=== PATIENT | male | born 1965 | race Caucasian/White ===

== ENCOUNTER 2019-03-16 12:01 | Emergency (ER) | payer OTHER, SELFPAY ==
--- NOTE | ~2019-03-16 | XR_ITS ---
EXAMINATION: XR hand RT min 3V DATE: 03/16/2019 14:01 INDICATION: Right hand pain. TECHNIQUE: 3 views of right hand were obtained. COMPARISON: Right hand radiographs 03/17/2018 FINDINGS: Bone alignment is normal. No fracture. There is mild osteoarthritis of first carpometacarpa l joint and first interphalangeal joint. IMPRESSION: 1. Mild polyarticular osteoarthritis. Reviewed, dictated and finalized at location A. [facility] STRIPPER
[2019-03-16 13:12] VITALS: BP 130/81; PULSE 60; RESP 18; TEMP 36.3; O2SAT 100
--- NOTE | 2019-03-16 13:40 | ED.GENADULT ---
HPI - General Adult General Chief complaint: Extremity Injury, Upper Stated complaint: Swelling right hand Time Seen by Provider: 03/16/19 13:44 Source: patient and RN notes reviewed Mode of arrival: ambulatory Limitations: no limitations History of Present Illness HPI narrative: This patient has had right hand swelling that was noted x2 days. Is not really painful but feels somewhat tight. There is been no coloration changes, no bruising, no redness, no warmth to touch. He had no trauma to the hand. 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 No other joint areas of been painful. He has had no previous fractures to his hand. He has no history of rheumatoid arthritis or lupus. He has not had any fever. He is otherwise felt well without any ear pain, no nasal drainage, no sore throat, no fever, no cough. He has not taken any medications for this. He has had no known exposure to anyone with respiratory infections that he is aware of. He would like to have an x-ray taken of the right hand to ensure there is no stress fracture or underlying bone disease. Related Data Home Medications Medication Instructions Recorded Confirmed aspirin 81 mg tablet,delayed 81 mg PO DAILY 12/28/18 03/16/19 release cetirizine 10 mg tablet 10 mg PO DAILY 12/28/18 03/16/19 meloxicam 15 mg tablet 15 mg PO DAILY 12/28/18 03/16/19 trazodone 50 mg tablet 50 mg PO DAILY tablet 12/28/18 03/16/19 Allergies Allergy/AdvReac Type Severity Reaction Status Date / Time Sulfa (Sulfonamide Allergy Mild Rash Verified 03/16/19 13:32 Antibiotics) viviana flavor Allergy Unknown Unknown Verified 03/16/19 13:32 poison francheska extract Allergy Unknown Unknown Verified 03/16/19 13:32 Review of Systems Review of Systems: Narrative: CONSTITUTIONAL: Denies fever, chills, or sweats. Noncontributory except as pertains to the past medical history and history of present illness. EYES: Denies visual changes, redness, or discharge. ENT: Denies rhinorrhea, congestion, sore throat, or otalgia. CARDIOVASCULAR: Denies chest pain, palpitations, or edema. RESPIRATORY: Denies cough or dyspnea. GASTROINTESTINAL: Denies abdominal pain, nausea, vomiting, or diarrhea. GENITOURINARY: Denies dysuria or hematuria. SKIN: Denies rash or itching. MUSCULOSKELETAL: Denies back pain, joint pain, or myalgia. NEUROLOGIC: Denies headache, numbness, or weakness. PSYCHIATRIC: Denies anxiety or depression. [facility] Family History Family History (Updated 10/08/15 @ 14:06 by DOCTOR UNKNOWN) Sibling Family history of thyroid disease Depression Other Family history of arthritis Hypertension Social History Social History Smoking status: Heavy tobacco smoker Second hand tobacco smoke exposure: No Comments At time of signature, I have reviewed and agree with nursing past medical, surgical, social, and family history.Please see nursing chart for further information. There is no relevant family history pertinent to the presenting complaint. Exam Narrative: Exam Narrative: GENERAL: Well-appearing, well-nourished, and in no acute distress. HEAD: Normocephalic, atraumatic. EYES: PERRLA and EOMI. EARS: TM's clear bilaterally and the canals are clear. NOSE: Nares clear, no rhinorrhea or epistaxis. THROAT:Mucous membranes moist.Oropharynx normal without erythema or exudates. NECK: Supple. No adenopathy of the neck, supraclavicular, axillary, or inguinal areas. RESPIRATORY: No respiratory distress. Airway patent. Respirations non-labored. Clear to auscultation. There are no wheezes, no rales, no retractions, no use accessory muscle respirations. Patient is not cyanotic and not dyspneic. The pulse ox on room air is 100%. HEART: Regular rate and rhythm. No murmur heard. Normal peripheral pulses. ABDOMEN: Soft, nontender, nondistended, normal active bowel sounds.No masses. No rebound or guarding, No organomegaly. There is no CVA pain. No pain at McBurney's point. I
== END 2019-03-16 14:21 | disposition home or self-care (01) ==
PROVIDERS: Emergency Provider Family Medicine; PCP Internal Medicine
DX: M77.9 Enthesopathy, unspecified (principal); F17.200 Nicotine dependence, unspecified, uncomplicated; I10 Essential (primary) hypertension
CPT/HCPCS: 73130; 99213; G0463

== ENCOUNTER 2021-05-07 08:10 | Outpatient (CLI) | payer OTHER, SELFPAY ==
--- NOTE | ~2021-05-07 | CT_ITS ---
EXAMINATION: CT lung screening DATE: 05/07/2021 08:24 INDICATION: Personal history of nicotine dependence, current smoker with 40 pack year history TECHNIQUE: Computed tomography (CT) of the chest was performed without intravenous contrast. The dose -length product (DLP) was 117.07 mGy-cm. Automated exposure control and iterative reconstruction tech [employer] were employed. COMPARISON: None FINDINGS: There is moderate emphysema. No suspicious pulmonary nodules are identified. The lungs are free of acute opacities. There is no pleural effusion or pneumothorax. No pathologically enlarged tho racic lymph nodes are identified. The heart size is normal. There is mild thoracic spondylosis. IMPRESSION: 1. Lung-RADS category 1: Negative. Continue annual screening with noncontrast low-dose chest CT in 12 months. Reviewed, dictated and finalized at location B. IMPRESSION: 1. Lung-RADS category 1: Negative. Continue annual screening with noncontrast l ow-dose chest CT in 12 months.
== END 2021-05-07 08:11 | disposition home or self-care (01) ==
LOC: ANHIMG 08:12
PROVIDERS: PCP Family Medicine; Visit Provider Family Medicine
DX: Z12.2 Encounter for screening for malignant neoplasm of respiratory organs (principal); F17.210 Nicotine dependence, cigarettes, uncomplicated
CPT/HCPCS: 71271

== ENCOUNTER 2021-07-19 00:44 | Day surgery (SDC) | payer OTHER, SELFPAY ==
[2021-06-29 13:30] VITALS: BMI 26.7
--- NOTE | 2021-07-16 14:14 | PM.HPGS ---
History of Present Illness History of Present Illness Consent: Risks, benefits, and alternatives have been discussed and questions answered. Patient agrees to proceed with procedure. Chief complaint: hx of colon polyps Narrative: Vel Lorenzo is a 55 year old male Who is here for colon cancer screening. Five years ago he had removal of a few polyps were, 1 of which was a tubular adenoma. Review of Systems Review of Systems: All systems reviewed & are unremarkable except as noted in HPI and below PMFSH Family History Family History Sibling Family history of thyroid disease Depression Other Family history of arthritis Hypertension Social History Social History Smoking packs per day: 0.5 Smoking cigarettes per day: 10.0 Years smoked: 30 Smoking pack-years: 15.00 Smoking status: Current every day smoker Tobacco type: cigarettes Second hand tobacco smoke exposure: No Living arrangements: with family Spiritual care concerns: No Meds Home Medications and Allergies Home Medications Medication Instructions Recorded Confirmed Type aspirin 81 mg tablet,delayed 81 mg PO DAILY 12/28/18 06/29/21 History release (Adult Low Dose Aspirin) cetirizine 10 mg tablet 10 mg PO DAILY 12/28/18 06/29/21 History losartan 50 mg tablet 50 mg PO DAILY #30 tabs 05/03/21 06/29/21 Rx omeprazole 20 mg capsule,delayed See Rx Instructions .Route 06/28/21 06/29/21 Rx release .COMPLEX #90 caps trazodone 50 mg tablet See Rx Instructions .Route 06/28/21 06/29/21 Rx .COMPLEX #120 tabs Allergies Allergy/AdvReac Type Severity Reaction Status Date / Time Sulfa (Sulfonamide Allergy Mild Rash Verified 07/19/21 06:19 Antibiotics) viviana flavor Allergy Unknown Unknown Verified 07/19/21 06:19 poison francheska extract Allergy Unknown Unknown Verified 07/19/21 06:19 Exam Resp: Auscultation: clear to auscultation bilaterally Cardio: Rate: regular rate Rhythm: regular rhythm GI: GI Palp: Yes Soft to palpation and No Tenderness to palpation present (GI) Assessment and Plan Assessment and plan (1) Screen for colon cancer: Code(s): Z12.11 - Encounter for screening for malignant neoplasm of colon Status: Resolved Assessment and Plan: Colonoscopy with possible biopsy or polypectomy or cautery or injection of substances.
[2021-07-19 06:20] VITALS: BP 126/82; PULSE 79; RESP 18; TEMP 36.1; O2SAT 99; BMI 22.5
[2021-07-19] MEDS: LACTATED RINGERS 1,000 ML 150 ML IV CONT (06:29)
--- NOTE | 2021-07-19 06:59 | WPDANESEPPF ---
Anes - Initial Pre Proc Eval Procedure: Operation Date: 07/19/21 07:30 Proposed Procedures p Screening Colonoscopy - Bienvenido Aguayo MD Date/Time: 07/19/21 06:59 Surgeon: Bienvenido Aguayo MD Pre Op Diagnosis: hx of colon polyps Patient Data Age: 55 Gender: M Height: 1.8 m Weight: 73.2 kg Last Vital Signs Temp 36.1 C L 07/19/21 06:20 Pulse 79 07/19/21 06:20 Resp 18 07/19/21 06:20 BP 126/82 07/19/21 06:20 Pulse Ox 99 07/19/21 06:20 O2 Del Method Room Air 07/19/21 06:20 Allergies Allergy/AdvReac Type Severity Reaction Status Date / Time Sulfa (Sulfonamide Allergy Mild Rash Verified 07/19/21 06:19 Antibiotics) viviana flavor Allergy Unknown Unknown Verified 07/19/21 06:19 poison francheska extract Allergy Unknown Unknown Verified 07/19/21 06:19 Home Medications Medication Instructions Recorded Confirmed Type aspirin 81 mg tablet,delayed 81 mg PO DAILY 12/28/18 06/29/21 History release (Adult Low Dose Aspirin) cetirizine 10 mg tablet 10 mg PO DAILY 12/28/18 06/29/21 History losartan 50 mg tablet 50 mg PO DAILY #30 tabs 05/03/21 06/29/21 Rx omeprazole 20 mg capsule,delayed See Rx Instructions .Route 06/28/21 06/29/21 Rx release .COMPLEX #90 caps trazodone 50 mg tablet See Rx Instructions .Route 06/28/21 06/29/21 Rx .COMPLEX #120 tabs Patient hx anesthesia problems: none Family hx anesthesia problems: none Results Review: All pre-operative results and documents have been reviewed as part of the pre-operative evaluation. [facility] Past Medical History Medical History (Updated 07/19/21 @ 07:03 by Giovanni Michael MD) Alcohol dependence in remission Atrial fibrillation Elevated cholesterol with high triglycerides Essential (primary) hypertension Sleep apnea in adult Family History Family History Sibling Family history of thyroid disease Depression Other Family history of arthritis Hypertension Social History Social History Smoking packs per day: 0.5 Smoking cigarettes per day: 10.0 Years smoked: 30 Smoking pack-years: 15.00 Smoking status: Current every day smoker Tobacco type: cigarettes Second hand tobacco smoke exposure: No Living arrangements: with family Spiritual care concerns: No Anes - Eval Final PreProcedure Day of Procedure 07/19/21 06:59 Patient weight: normal Heart: regular rate and rhythm Lungs: clear to auscultation and normal air movement Airway: Mallampati scale class II Neurological: alert and oriented Last oral intake: >/= 8 hours ASA classification: III Emergent: no Anesthetic plan: proceed Anesthesia type and monitoring: general GIVS Results Review: All pre-operative results and documents have been reviewed as part of the pre-operative evaluation. Informed Consent: The patient's anesthetic plan and its attendant risks and benefits were discussed with the patient/family/POA. Questions were solicited and answers provided to the satisfaction of the patient/family/POA.
[2021-07-19 07:40] VITALS: BP 110/68; PULSE 86; RESP 17; O2SAT 98
[2021-07-19 07:50] VITALS: BP 109/69; PULSE 65; RESP 19; O2SAT 98
[2021-07-19 08:00] VITALS: BP 140/81; PULSE 65; RESP 19; O2SAT 100
== END 2021-07-19 08:03 | disposition home or self-care (01) ==
PROVIDERS: PCP Family Medicine; Visit Provider Internal Medicine Gastroenterology
PROC: 0DJD8ZZ Inspection of Lower Intestinal Tract, Via Natural or Artificial Opening Endoscopic (ICD-10-PCS; CPT 45378; principal; 2021-07-19 07:30)
DX: Z12.11 Encounter for screening for malignant neoplasm of colon (principal); K62.1 Rectal polyp; I10 Essential (primary) hypertension; E78.00 Pure hypercholesterolemia, unspecified; G47.30 Sleep apnea, unspecified; E78.1 Pure hyperglyceridemia; I48.91 Unspecified atrial fibrillation; F10.21 Alcohol dependence, in remission; F17.210 Nicotine dependence, cigarettes, uncomplicated
CPT/HCPCS: 45380; 88305; J2704; J7120

== ENCOUNTER 2022-07-23 12:35 | Outpatient (CLI) | payer OTHER, SELFPAY ==
--- NOTE | ~2022-07-23 | CT_ITS ---
EXAMINATION: CT lung screening DATE: 07/23/2022 13:15 INDICATION: Personal history of nicotine dependence. TECHNIQUE: Computed tomography (CT) of the chest was performed without intravenous contrast. The dose -length product was 150.75 mGy-cm. Automated exposure control and iterative reconstruction technique were employed. COMPARISON: CT dated 05/07/2021 FINDINGS: Heart size normal. No thoracic lymphadenopathy. No significant pleural or pericardial effus ion. There is emphysema. No endobronchial lesions. No pneumothorax. No suspicious pulmonary nodules o r masses. No focal consolidation. No pneumothorax. Mild thoracic spondylosis. IMPRESSION: 1. Lung-RADS category 1: Negative. Continue annual screening with noncontrast low-dose chest CT in 12 months. Reviewed, dictated and finalized at location A. IMPRESSION: 1. Lung-RADS category 1: Negative. Continue annual screening with noncontrast l ow-dose chest CT in 12 months.
== END 2022-07-23 12:36 | disposition home or self-care (01) ==
PROVIDERS: PCP Family Medicine; Visit Provider Family Medicine
DX: Z12.5 Encounter for screening for malignant neoplasm of prostate (principal); F17.210 Nicotine dependence, cigarettes, uncomplicated
CPT/HCPCS: 71271

== ENCOUNTER 2023-07-21 15:23 | Emergency (ER) | payer OTHER, SELFPAY ==
[2023-07-21 15:36] VITALS: BP 109/65; PULSE 82; RESP 16; TEMP 36.9; O2SAT 100
--- NOTE | 2023-07-21 15:57 | ED.GENADULT ---
HPI - General Adult General Chief complaint: Wound/Laceration Stated complaint: right hand lac infection Time Seen by Provider: 07/21/23 15:40 Source: patient, RN notes reviewed and old records reviewed Mode of arrival: ambulatory Limitations: no limitations History of Present Illness HPI narrative: 57 year old male who presents to [facility] care with complaints of concern for wound infection to laceration of his right palm which occurred 8 days ago when he was working on the [facility] and cut his hand on a piece of metal. He reports that he went to a clinic an was sutured but glue was also used prior to suturing. Patient reports that he has noted some burning to the palm of hisright hand and small amount of purulent drainage. Patient denies any fevers, chills or sweats, has full mobility of right hand and fingers, no acute redness of wound noted. Patient reports that he has appointment with PCP the beginning of next week. MD complaint: concern for infection to laceration repair right hand Onset (ago): day(s) (laceration and repair 8 days ago) Location: right and upper extremity (palm of hand) Severity scale (1-10): 2 Quality: burning Treatments prior to arrival: other (has applied some Neosporin ointment) Related Data Home Medications Medication Instructions Recorded Confirmed cetirizine 10 mg tablet 10 mg PO DAILY 12/28/18 07/21/23 Allergies Allergy/AdvReac Type Severity Reaction Status Date / Time Sulfa (Sulfonamide Allergy Mild Rash Verified 07/18/22 16:13 Antibiotics) viviana flavor Allergy Unknown Unknown Verified 07/18/22 16:13 poison francheska extract Allergy Unknown Unknown Verified 07/18/22 16:13 Review of Systems Review of Systems: CONSTITUTIONAL: Denies fever, chills, or sweats. CARDIOVASCULAR: Denies chest pain, palpitations, or edema. RESPIRATORY: Denies cough or dyspnea. SKIN: Reports burning discomfort with some purulent drainage to previously sutured laceration site right palm of hand MUSCULOSKELETAL: Denies musculoskeletal pain NEUROLOGIC: Denies numbness, or weakness. All systems reviewed & are unremarkable except as noted in HPI and below PMFSH Past Medical History Medical History Alcohol dependence in remission Atrial fibrillation Elevated cholesterol with high triglycerides Essential (primary) hypertension Sleep apnea in adult Surgical History Surgical History H/O arthroscopy of left knee Family History Family History Sibling Family history of thyroid disease Depression Mother Heart disease Other Family history of arthritis Hypertension Social History Social History Smoking packs per day: 1 Smoking cigarettes per day: 20.0 Years smoked: 30 Smoking pack-years: 30.00 Smoking status: Current every day smoker Tobacco type: cigarettes Second hand tobacco smoke exposure: No Alcohol intake: former Substance use type: does not use Living arrangements: with family Gender identity (if verbalized by the patient): Male Spiritual care concerns: No Comments At time of signature, agree with nursing past medical, surgical, social and family history. There is no relevant family history pertinent to the presenting complaint Exam Narrative: GENERAL: Well-appearing, well-nourished, and in no acute distress. HEAD: Normocephalic, atraumatic. NECK: Supple.no lymphadenopathy CHEST: Clear to auscultation. No respiratory distress.SAO2 100% on room air HEART: Regular rate and rhythm. No murmur heard. Normal peripheral pulses. EXTREMITIES: Normal range of motion. No edema. SKIN: Warm, dry, no rash. Reports some burning sensation and purulent drainage from laceration repair from 8 days ago to right palm, no acute redness noted of wound, patient has full mob
== END 2023-07-21 16:09 | disposition home or self-care (01) ==
PROVIDERS: Emergency Provider Registered Nurse; PCP Family Medicine
DX: S61.411D Laceration without foreign body of right hand, subsequent encounter (principal); L08.9 Local infection of the skin and subcutaneous tissue, unspecified; W45.8XXD Other foreign body or object entering through skin, subsequent encounter; I48.91 Unspecified atrial fibrillation; I10 Essential (primary) hypertension; E78.2 Mixed hyperlipidemia; F17.210 Nicotine dependence, cigarettes, uncomplicated
CPT/HCPCS: 99213; G0463

== ENCOUNTER 2023-07-28 14:57 | Emergency (ER) | payer OTHER, SELFPAY ==
[2023-07-28 15:01] VITALS: BP 136/71; PULSE 68; RESP 18; TEMP 36.8; O2SAT 100
--- NOTE | 2023-07-28 15:51 | ED.WOUNDLAC ---
HPI - Wound/Laceration General Chief Complaint: Wound/Laceration Stated Complaint: remove stitches right hand Time Seen by Provider: 07/28/23 15:32 Source: patient, RN notes reviewed and old records reviewed Mode of arrival: ambulatory Limitations: no limitations History of Present Illness HPI narrative: 57-year-old male to [facility] requesting removal of sutures from right palm. Patient states that [place] 2 weeks ago he lacerated his right palm on a piece of metal. Patient was seen here 07/21/23 for an infection of wound and placed on Keflex. Patient denies pain, numbness, redness, swelling, warmth at wound site. Patient is left-hand dominant. Patient in no acute distress. Related Data Home Medications Medication Instructions Recorded Confirmed cetirizine 10 mg tablet 10 mg PO DAILY 12/28/18 07/28/23 omeprazole 20 mg capsule,delayed 20 mg PO DAILY 07/28/23 07/28/23 release tamsulosin 0.4 mg capsule 0.4 mg PO BID 07/28/23 07/28/23 trazodone 50 mg tablet 50 mg PO QHS PRN Sleep 07/28/23 07/28/23 Allergies Allergy/AdvReac Type Severity Reaction Status Date / Time Sulfa (Sulfonamide Allergy Mild Rash Verified 07/28/23 15:10 Antibiotics) viviana flavor Allergy Unknown Unknown Verified 07/28/23 15:10 poison francheska extract Allergy Unknown Unknown Verified 07/28/23 15:10 Review of Systems Review of Systems: All systems reviewed & are unremarkable except as noted in HPI and below Constitutional: Constitutional: Reports no additional constitutional complaints Eyes: Eyes: Reports no additional eye complaints ENT: Reports system reviewed and no additional complaints, except as documented Cardiovascular: Cardiovascular: Reports no additional cardiovascular complaints, Denies chest pain and Denies dyspnea Respiratory: Respiratory: Reports no additional respiratory complaints, Denies cough and Denies dyspnea Musculoskeletal: Musculoskeletal: Reports no additional musculoskeletal complaints Integumentary/Breasts: Skin/Breast: Reports wounds ( lesion to right palm; Five sutures present) Neurologic: Reports system reviewed and no additional complaints, except as documented Psychiatric: Psychiatric: Reports no additional psychiatric complaints PMFSH Past Medical History Medical History Alcohol dependence in remission Atrial fibrillation Elevated cholesterol with high triglycerides Essential (primary) hypertension Sleep apnea in adult Surgical History Surgical History H/O arthroscopy of left knee Family History Family History Sibling Family history of thyroid disease Depression Mother Heart disease Other Family history of arthritis Hypertension Social History Social History Smoking packs per day: 1 Smoking cigarettes per day: 20.0 Years smoked: 30 Smoking pack-years: 30.00 Smoking status: Current every day smoker Tobacco type: cigarettes Second hand tobacco smoke exposure: No Alcohol intake: former Substance use type: does not use Living arrangements: with family Gender identity (if verbalized by the patient): Male Spiritual care concerns: No Comments At the time of my signature, I reviewed and agree with the nursing past medical, surgical, social, and family history. There is no relevant family history pertinent to the patient complaint. Exam Const: General: cooperative, healthy appearing, comfortable, no acute distress, alert and well nourished Nutritional Appearance: well nourished Orientation/consciousness: patient oriented x3 Limitations: no limitations HENMT: Head: normal to inspection Ears: external ears normal Face/Nose/Sinus: Normal external nose present, Normal nares present, norm
== END 2023-07-28 16:21 | disposition home or self-care (01) ==
PROVIDERS: Emergency Provider Nurse Practitioner Family; PCP Family Medicine
DX: S61.411D Laceration without foreign body of right hand, subsequent encounter (principal); W45.8XXD Other foreign body or object entering through skin, subsequent encounter; F17.210 Nicotine dependence, cigarettes, uncomplicated; I48.91 Unspecified atrial fibrillation; I10 Essential (primary) hypertension; E78.2 Mixed hyperlipidemia
CPT/HCPCS: 99211; G0463

== ENCOUNTER 2023-09-18 09:25 | Outpatient (CLI) | payer OTHER, SELFPAY ==
[2023-09-18 11:49] LABS: Alanine Aminotransferase 28 U/L (6-50); Albumin Level 4.3 g/dL (3.5-5.1); Alkaline Phosphatase 118 U/L (38-126); Anion Gap 6 mmol/L (4-12); Aspartate Amino Transferase 35 U/L (17-59); Bilirubin,Total 0.3 mg/dL (0.2-1.3); Blood Urea Nitrogen 8 mg/dL (9-20); Calcium 9.8 mg/dL (8.4-10.2); Carbon Dioxide 29 mmol/L (22-30); Chloride 102 mmol/L (98-107); Cholesterol 203 mg/dL (0-200); Estimated Glomerular Filt Rate > 60; Glucose 95 mg/dL (65-110); HDL Direct 38 mg/dL; Potassium 4.6 mmol/L (3.4-5.0); Sodium 137 mmol/L (137-145); Triglycerides 192 mg/dL (<150)
[2023-09-18 12:00] LABS: LDL Cholesterol Direct 127 mg/dL
== END 2023-09-18 09:26 | disposition home or self-care (01) ==
LOC: ANHGOSHLAB 09:26
PROVIDERS: PCP Family Medicine; Visit Provider Family Medicine
DX: Z13.220 Encounter for screening for lipoid disorders (principal); Z13.228 Encounter for screening for other metabolic disorders
CPT/HCPCS: 36415; 80053; 80061

== ENCOUNTER 2024-03-29 08:21 | Outpatient (CLI) | payer OTHER, SELFPAY ==
--- OUTSIDE RECORDS SUMMARY | 2024-03-29 08:25 | XMS_ITS | Patient Health Summary ---
Author Organization [facility] Address [address] [place] [address] Care Team Providers Care Care Transitions Nurse Name Role Phone Aneesh Doty MD Primary Care Provider Note from [facility],non-owned Affiliates and Associated Physician Practices is amultiple site organization consisting of ambulatory clinics and hospital sitesin [place], [place], [place] and [place]. This disclosure is being madepursuant to the Care Everywhere program and may not contain all information available regarding this patient. Last updated 17.[facility] Immunizations * iNFLUENZA VACCINE, RECOM-SHARMA, QUADR. (FLUBLOCK QUADRIVALENT; 18Y+) (RIV4)(Given 12/10/2017) Social History Tobacco Use Types Packs/Day Years Used Date Smoking Tobacco: Never Assessed Sex and Gender Information Value Date Recorded Sex Assigned at Not on file Gender Identity Not on file Sexual Orientation Not on file Care Teams Care Transitions Nurse Relationship Specialty Start Date End Date Aneesh Doty MD [address] [place] [id number] PCP - General 07/20/21
--- OUTSIDE RECORDS SUMMARY | 2024-03-29 08:25 | XMS_ITS | Clinical Summary ---
Author Organization [facility] Address [address] [place] [address] Phone Care Team Providers Care Tester/Lift Trucker Name Role Phone Atilio Faulkner Primary Care Provider [phone] Kye Shukla MD Unavailable [phone] Vel Roque MD Unavailable Richard De Leon MD Unavailable Horace RODRIGUEZ MD, Courtney Unavailable Allergies Active Allergy Reactions Criticality Noted Date Comments Sulfa Antibiotics Rash 10/24/2022 Medications amLODIPine (NORVASC) 5 MG Tablet Take 5 mg by mouth daily. 3 Active fexofenadine (KIMBERLY) 60 MG Tablet Take by mouth daily. Active OMEPRAZOLE PO Take by mouth. Active aspirin EC 81 MG Tablet Delayed Response Take 81 mg by mouth daily. Active finasteride (PROSCAR) 5 MG Tablet 3 Active losartan (COZAAR) 50 MG Tablet Take 50 mg by mouth daily. 3 Active olmesartan (BENICAR) 20 MG Tablet Take 20 mg by mouth daily. 3 Active traZODone (DESYREL) 50 MG Tablet 3 Active traZODone (DESYREL) 50 MG Tablet Take 50 mg by mouth. Active tadalafil (CIALIS) 20 MG TabletIndication s:Other male erectile dysfunction Take 1 Tablet by mouth as needed for Erectile Dysfunction. 10 Tablet 10 3 Active tamsulosin (FLOMAX) 0.4 MG CapsuleIndicatio ns:Prostate CA (HCC),Hyperplasi a of prostate with lower urinary tract symptoms (LUTS) Take 1 capsule by mouth twice daily 180 Capsule 4 Active Active Problems Problem Noted Date Diagnosed Date Prostate CA Cancer Staging:Clinical stage from 10/07/2022:Stage IIA(cT1c, cN0, cM0, PSA: 10.4, Grade Group: 1) - Signed by Vel Roque MD on 11/21/2022 Immunizations Immunization Administration Dates Next Due Covid-19, Mrna, Lnp-s, Pf, 3 0 Mcg/0.3 Ml Dose, Jamin-sucrose (PlayerLync spence top) 08/29/2021 Influenza Vaccine, MDCK,quad rivalent, pres free 02/05/2019 Influenza Vaccine, Quadrivalent, PF 10/29/2022,0 03/14/2021,01/12/2020 Influenza, Recombinant, Quadrivalent,injectable, Pf 12/10/2017 Influenza, Seasonal, Injectable, Undefined 12/21,02/23/2013,12/10/2011 Family History Medical History Relation Name Comments Cancer Father Prostate Cancer Father Relation Name Status Comments Father Social History Tobacco Use Types Packs/Day Years Used Date Smoking Tobacco: Every Day Cigarettes Passive Smoke Exposure: Past Tobacco Cessation:Ready to Q uit: Not Asked; Counseling Given: Not Answered Alcohol Use Standard Drinks/Week Comments Not Currently 0 (1 standard drink = 0.6 oz pur e alcohol) Sexually Active Control Partners Comments Not Currently Sex and Gender Information Value Date Recorded Sex Assigned at Not on file Legal Sex Male 8:32 PM CDT Gender Identity Not on file Sexual Orientation Not on file Last Filed Vital Signs Vital Sign Reading Time Taken Comments Blood Pressure 132/85 12/12/2022 8:06 AM CDT Pulse 79 12/12/2022 8:06 AM CDT Temperature 36.4 C (97.5 F) 10/24/2022 9:05 AM CDT Respiratory Rate 16 12/12/2022 8:06 AM CDT Oxygen Saturation 99% 10/24/2022 9:05 AM CDT Inhaled Oxygen Concentration - - Weight 86.2 kg (190 lb) 12/12/2022 8:06 AM CDT Height 180.3 cm (5' 11 ) 12/12/2022 8:06 AM CDT Body Mass Index 26.5 12/12/2022 8:06 AM CDT Plan of Treatment Health Maintenance Due Date Last Done Comments Hepatitis C Virus (HCV) Screening 1965 TdaP Immunization 1965 Pneumococcal Immunization (50+ years) (1 of 2 - PCV) 11/13/1982 Zoster Immunization (1 of 2) 11/13/1982 Colonoscopy 11/13/2008 Colorectal Cancer Screening 11/13/2008 Cologuard 11/13/2013 Immunochemical Fecal Occult Blood 11/13/2013 Influenza Immunization (#1) 10/15/202310/14, 03/14/2021, 01/12/2020, Additional history exists SARS-COV-2 Immunization ( season) 2023 11/13/2022, 02/19/2022, 08/29/2021, Additional history exists Respiratory Syncytial Virus (RSV) Immunization (Adult) (1 - 1-dose 75+ series) 11/13/2038 PSA Discussion Completed 10/07/2022, 09/02/2022 Hepatitis B Immunization Aged Out No longer eligible based on patient's age to complete this topic Meningococcal Immunization (ACWY) Aged Out No longer eligible based on patient's age to complete this topic Rotavirus Immunization Aged Out No lo nger eligible based on patient's age to complete this topic Procedures Procedure Name Priority Date/Time Associated Diagnosis Comments PSA SCREEN 10/07/2022 12:00 AM CDT from Last 3 Months or Most Recently Relevant to Health Maintenance Results * PSA SCREEN (10/07/2022 12:00 AM CDT) PSA (PROSTATE SPECIFIC ANTIGEN) 10 ng/mL SCAN 10/07/2022 us Provider Scan CHEMISTRY ORDERABLES Final Resul t SCAN from Last 3 Months or Most Recently Relevant to Health Maintenance Insurance [facility] Care Teams Tester/Lift Trucker Relationship Specialty Start Date End Date Atilio Faulkner DO PCP - General Family Medicine 07/22/22 Kye Shukla MD [address] [facility] [address] [place] [address] Consulting Physician Radiation Oncology 11/21/22 Vel Roque MD [address] [place] [address] Consulting Physician Radiation Oncology 11/21/22 Richard De Leon MD [address] [place] [address] Consulting Physician Urology 11/21/22 Bianca Vu III, MD [address] [place] [address] Consulting Physician Urology 12/12/22
--- OUTSIDE RECORDS SUMMARY | 2024-03-29 08:25 | XMS_ITS | Encounter Summary ---
Author Organization [facility] Address [address] [place] [address] Phone Care Team Providers Care Scientific Programmer Analyst Name Role Phone Atilio Faulkner DO Primary Care Provider [phone] Kye Shukla MD Unavailable [phone] Vel Roque MD Unavailable [phone] Richard De Leon MD Unavailable Horace RODRIGUEZ MD, Courtney Unavailable [phone] Reason for Visit * Reason Comments Medication Refill Encounter Details Date Type Department Care Team (Late Contact Info) Description 09/26/2023 Refill [facility] [address] [place] [id number] Leroy Bradford, GARBAGE TRUCK DRIVER, TURF SALES PERSON [address] [place] [address] Medication Refill Social History Tobacco Use Types Packs/Day Years Used Date Smoking Tobacco: Every Day Cigarettes Passive Smoke Exposure: Past Alcohol Use Standard Drinks/Week Comments Not Currently 0 (1 standard drink = 0.6 oz pur e alcohol) Sexually Active Control Partners Comments Not Currently Sex and Gender Information Value Date Recorded Sex Assigned at Not on file Legal Sex Male 8:32 PM CDT Gender Identity Not on file Sexual Orientation Not on file documented as of this encounter Plan of Treatment Not on file documented as of this encounter Visit Diagnoses Diagnosis Prostate CA (HCC) Malignant neoplasm of prostate Hyperplasia of prostate with lower urinary tract symptoms (LUTS) Unspecified hyperplasia of prostate with urinary obstruction and other lower urinary tract symptoms (LUTS) documented in this encounter Care Teams Scientific Programmer Analyst Relationship Specialty Start Date End Date Atilio Faulkner Rito PCP - General Family Medicine 07/22/22 Kye Shukal MD [address] [facility] [address] [place] [address] Consulting Physician Radiation Oncology 11/21/22 Vel Roque MD [address] [place] [address] Consulting Physician Radiation Oncology 11/21/22 Richard De Leon MD [address] [place] [address] Consulting Physician Urology 11/21/22 Bianca Vu III, MD [address] [place] [address] Consulting Physician Urology 12/12/22 documented as of this encounter
--- OUTSIDE RECORDS SUMMARY | 2024-03-29 08:25 | XMS_ITS | Encounter Summary ---
Author Organization [facility] Address [address] [place] [address] Phone Care Team Providers Care Section Housekeeper Name Role Phone SarahnighatAtilio DO Primary Care Provider [phone] Kye Shukla MD Unavailable [phone] Vel Roque MD Unavailable [phone] Richard De Leon MD Unavailable Horace RODRIGUEZ MD, Courtney Unavailable [phone] Reason for Visit * Reason Comments Medication Refill Encounter Details Date Type Department Care Team (Late Contact Info) Description 06/28/2023 Refill [facility] [address] [place] [address] Leroy Bradford, TRAIN ENGINEER, SAP BODS DEVELOPER [address] [place] [address] Medication Refill Social History Tobacco Use Types [...] (LUTS) documented in this encounter Care Teams Section Housekeeper Relationship Specialty Start Date End Date Atilio Faulkner Rito PCP - General Family Medicine 07/22/22 Kye Shukla MD [address] [facility] [address] [place] [address] Consulting Physician Radiation Oncology 11/21/22 Vel Roque MD [address] [place] [address] Consulting Physician Radiation Oncology 11/21/22 Richard De Leon MD [address] [place] [address] Consulting Physician Urology 11/21/22 Bianca Vu III, MD [address] [place] [address] Consulting Physician Urology 12/12/22 documented as of this encounter
--- OUTSIDE RECORDS SUMMARY | 2024-03-29 08:25 | XMS_ITS | Referral Summary ---
Author Organization [facility] Address [address] [facility] [place] [address] Care Team Providers Care Range Examiner Name Role Phone Aneesh Doty MD Primary Care Provider [phone] Source Comments [facility],non-owned Affiliates and Associated Physician Practices is amultiple site organization consisting of ambulatory clinics and hospital sitesin [place], [place], [place] and [place]. This disclosure is being madepursuant to the Care Everywhere program and may not contain all information available regarding this patient. Last updated 17.[facility] Immunizations Name Administration Dates Next Due iNFLUENZA VACCINE, RECOM-SHARMA, QUADR. (FLUBLOCK QUADRIVALENT; 18Y+) (RIV4) 12/10/2017 Social History Tobacco Use Types Packs/Day Years Used Date Smoking Tobacco: Never Assessed Sex and Gender Information Value Date Recorded Sex Assigned at Not on file Gender Identity Not on file Sexual Orientation Not on file Plan of Treatment Not on file Care Teams Range Examiner Relationship Specialty Start Date End Date Aneesh Doty MD [address] [place] [id number] PCP - General 07/20/21
--- OUTSIDE RECORDS SUMMARY | 2024-03-29 08:25 | XMS_ITS | Referral Summary ---
Author Organization [facility] Address [address] [place] [address] Care Team Providers Care Stone Mason Name Role Phone Oxana Potts NP Unavailable [phone] Kye Shukla MD Unavailable [phone] Marly Beltran POLE SETTER Primary Care Provider [phone] Encounters Date Type Department Care Team Description 03/08/2024 12:25 PM [facility] [address] [address] Prostate cancer (HCC) from Last 3 Months Allergies Active Allergy Reactions Criticality Noted Date Comments Sulfa (Sulfonamide Antibiotics) Rash Medium Medications traZODone (DESYREL) 50 mg tablet Take 1 tablet (50 mg total) by mouth nightly as needed for sleep PRN Active tamsulosin (FLOMAX) 0.4 mg extended release capsule Take 1 capsule (0.4 mg total) by mouth daily Active amLODIPine (NORVASC) 5 mg tablet Take 1 tablet (5 mg total) by mouth cloth neutralizer before breakfast Active olmesartan (BENICAR) 20 mg tablet Take 1 tablet (20 mg total) by mouth cloth neutralizer before breakfast Active omeprazole (PriLOSEC) 40 mg capsule Take 1 capsule (40 mg total) by mouth cloth neutralizer before breakfast Active cetirizine (ZyrTEC) 10 mg chewable tablet Take 1 tablet (10 mg total) by mouth cloth neutralizer before breakfast Active amoxicillin (AMOXIL) 875 mg tablet TAKE 1 TABLET BY MOUTH EVERY 12 HOURS UNTIL GONE 3 Active aspirin 81 mg enteric coated tablet Take 1 tablet (81 mg total) by mouth daily Active cefdinir (OMNICEF) 300 mg capsule Take 1 capsule (300 mg total) by mouth 2 (two) times a day 4 Active doxycycline hyclate 100 mg capsule 4 Active fexofenadine (KIMBERLY) 60 mg tablet Take 1 tablet (60 mg total) by mouth cloth neutralizer before breakfast Active HYDROcodone-jozef taminophen (NORCO) 5-325 mg per tabletIndicatio ns:Pain Take 1 tablet by mouth every 6 (six) hours as needed for pain 4 Active levoFLOXacin (LEVAQUIN) 500 mg tablet 4 Active tadalafiL (CIALIS) 20 mg tablet Take 1 tablet (20 mg total) by mouth as needed for erectile dysfunction 3 Active acetaminophen (TYLENOL) 500 mg tablet Take 1 tablet (500 mg total) by mouth every 6 (six) hours as needed for pain or headaches Active ibuprofen (ADVIL,MOTRIN) 600 mg tablet 4 Active famotidine (PEPCID) 20 mg tablet TAKE 1 TABLET BY MOUTH ONCE DAILY NEEDED FOR HEARTBURN 4 Active Active Problems Problem Noted Date Diagnosed Date Encounter for follow-up surveillance of prostate cancer 05/31/2023 Prostate CA 05/22/2023 Recurrent prostate adenocarcinoma 05/15/2023 Bladder outlet obstruction 03/17/2023 Overview (03/17/2023): chronic bladder outlet obstruction with prostatomegaly History of prostate cancer 03/17/2023 Prostate cancer 02/09/2023 Cancer Staging:Clinical stage from 05/23/2023:Stage I(cT1c, cN0, cM0, PSA: 6.3, Grade Group: 1) - Signed by Leroy Gamez MD on 05/23/2023 Social History Tobacco Use Types Packs/Day Years Used Date Smoking Tobacco: Every Day Cigarettes 0.5 53 Smokeless Tobacco: Never Tobacco Cessation:Ready to Q uit: Not Asked; Counseling Given: Not Answered AUDIT-C Answer Date Recorded Q1: How often do you have a drink containing alcohol? Never 05/22/2023 Q2: How many drinks containi ng alcohol do you have on a typical day when you are drinking? Patient does not drink Q3: How often do you have si x or more drinks on one occasion? Never 05/22/2023 Hunger Vital Sign Answer Date Recorded Within the past 12 months, y ou worried that your food would run out before you got the money to buy more. Never true 12/17/19 23 Within the past 12 months, t he food you bought just didn't last and you didn't have money to get more. Never true 12/16/2022 Personal Safety Answer Date Recorded Have you ever been in or are you currently in a harmful physical or emotional relationship or is someone making you feel afraid or unsafe? Denies 05/22/2023 Sex and Gender Information Value Date Recorded Sex Assigned at Not on file Legal Sex Male 4:27 AM [facility] Gender Identity Not on file Sexual Orientation Not on file Last Filed Vital Signs Vital Sign Reading Time Taken Comments Blood Pressure 155/80 05/23/2023 2:35 PM CDT Pulse 82 05/23/2023 2:35 PM CDT Temperature 36.4 C (97.5 F) 05/23/2023 2:35 PM CDT Respiratory Rate 18 05/23/2023 2:35 PM CDT Oxygen Saturation 99% 05/23/2023 2:35 PM CDT Inhaled Oxygen Concentration - - Weight 86.2 kg (190 lb) 05/08/2023 1:45 PM CDT Height 180.3 cm (5' 11 ) 05/08/2023 1:45 PM CDT Body Mass Index 26.5 05/08/2023 1:45 PM CDT Plan of Treatment Not on file Procedures Procedure Name Priority Date/Time Associated Diagnosis Comments PSA DIAGNOSTIC Routine 03/08/2024 12:34 PM [facility] Prostate cancer (HCC) TOTAL TESTOSTERONE Routine 03/08/2024 12 :34 PM [facility] Prostate cancer (HCC) from Last 3 Months Results * (ABNORMAL) Total testosterone (03/08/2024 12:34 PM [facility]) Testosterone 789(H) 193 - 740 ng/dL Comment:Testing performed by : [facility], [address] [place] [address], [place]., [address] Blood 03/08/2024 12:3 4 PM [facility] 03/08/2024 7:49 PM [facility] Oxana Potts LAB BLOOD ORDERABLES F inal Result Performing Organization Address [facility] de Phone Number [facility] ([place]) [address] [place] [address] * PSA diagnostic (03/08/2024 12:34 PM [facility]) PSA-Total 0.50 <=5.40 ng/mL Comment: Interpretive Data AGE SEX REFERENCE INTERVAL 0 minutes-150 years Female None 0 minutes-49 years Male None 50-59 years Male 0-3.90 60-69 years Male 0-5.40 70-79 years Male 0-6.20 80-150 years Male 0-6.20 The Dennis PSA Total assay procedure was used. Results from different manufacturers or methods may not be comparable. Serial testing should be performed using the same method. Current interpretive data last revised 21. Blood 03/08/2024 12:3 4 PM [facility] 03/08/2024 12:38 PM [facility] Oxana Potts LAB BLOOD ORDERABLES F inal Result Performing Organization Address [facility] de Phone Number [facility] ([place] [address] [place] [address] from Last 3 Months Insurance [facility] CHOICE PLUS [facility] HMO/PPO Address: [address] [place] [address] COMMERCIAL GENERIC [facility] CHOICE PLUS [facility] HMO/PPO Address: [address] [place] [address] COMMERCIAL GENERIC Advance Directives For more information, please contact: [phone] * Full Code (Latest Code Status on File) Date Activated Date Inactivated Comments 05/22/2023 4:44 PM 05/23/2023 8:00 PM Care Teams Stone Mason Relationship Specialty Start Date End Date Marly Beltran NP [address] [place] [address] PCP - General Internal Medicine 03/22/24 Oxana Potts NP [address] [place] [address] Nurse Practitioner Nurse Practitioner 05/31/23 Kye Shukla MD [address] [facility] [address] [place] [address] Radiation Oncologist Radiation Oncology 05/31/23
--- OUTSIDE RECORDS SUMMARY | 2024-03-29 08:25 | XMS_ITS | Clinical Summary ---
Author Organization [facility] Address [address] [place] [address] Care Team Providers Care Manager Traffic Name Role Phone Helene Jacome MD Unavailable Social History Tobacco Use Types Packs/Day Years Used Date Smoking Tobacco: Never Assessed Sex and Gender Information Value Date Recorded Sex Assigned at Not on file Legal Sex Male 1:30 PM CDT Gender Identity Not on file Sexual Orientation Not on file Plan of Treatment Health Maintenance Due Date Last Done Comments Colorectal Cancer Screening Colonoscopy (10 Years) 1965 Annual Physical 11/13/1966 Hepatitis C 11/13/1981 DTaP, Tdap and Td Vaccines ( 1 - Tdap) 11/13/1982 Zoster Vaccines (1 of 2) 11/13/2013 COVID-19 Vaccine (2023-2 5 season) 2023 Influenza Adult (#1) 2023 RSV Immunization or 60+ Years (1 - 1-dose 75+ series) 11/13/2038 Meningococcal B Vaccine Aged Out No l onger eligible based on patient's age to complete this topic Meningococcal Vaccine Aged Out No kami marcia eligible based on patient's age to complete this topic Pneumococcal Vaccine: Pediat rics (0 to 5 Years) and At-Risk Patients (6 to 64 Years) Aged Out No longer eligible b ased on patient's age to complete this topic RSV Immunizations Under 20 Months Aged Out No longer eligible based on patient's age to complete this topic Insurance [employer] Care Teams Manager Traffic Relationship Specialty Start Date End Date Helene Jacome MD [address] [place] [address] Homestead Office Engineer CLINICAL CARDIAC ELECTROPHYSIOLOGY 06/23/16
--- OUTSIDE RECORDS SUMMARY | 2024-03-29 08:25 | XMS_ITS ---
Author Organization [facility] Address [address] [place] [address] Care Team Providers Care Jewelry Engraver Name Role Phone Oxana Potts TICKET MAKER Unavailable [phone] Kye Shukla MD Unavailable [phone] Marly Beltran TICKET MAKER Primary Care Provider [phone] Active Problems Problem Noted Date Diagnosed Date Encounter for follow-up surveillance of prostate cancer 05/31/2023 Prostate CA 05/22/2023 Recurrent prostate adenocarcinoma 05/15/2023 Bladder outlet obstruction 03/17/2023 Overview (03/17/2023): chronic bladder outlet obstruction with prostatomegaly History of prostate cancer 03/17/2023 Prostate cancer 02/09/2023 Cancer Staging:Clinical stage from 05/23/2023:Stage I(cT1c, cN0, cM0, PSA: 6.3, Grade Group: 1) - Signed by Leroy Gamez MD on 05/23/2023 Current Oncology Plans Eligard Injection - 30 mg every 16 weeks* Plan Start Date:02/20/2023 Plan Provider:Kye Shukla MD Linked Problems Prostate cancer (HCC) Treatment Medications leuprolide (ELIGARD) Past Plans No past plan information found. Radiation Treatments * Plan Last Treated On Elapsed Days Fractions Treated Prescribed Fraction Dose Prescribed Total Dose BTFX1 05/24/2023 1 1 1,350 cGy 1,350 cGy BTFX2 05/24/2023 1 1 1,350 cGy 1,350 cGy Reference Point Last Treated On Elapsed Days Session Dose Total Dose BT1_DPV 05/24/2023 1 0 cGy 2,701 cGy Lifetime Dose Tracking * Chemical Lifetime Dose Automatic Entry Manual Entr y DLP 1,202 mGycm 1,202 mGycm 0 mGycm
--- OUTSIDE RECORDS SUMMARY | 2024-03-29 08:25 | XMS_ITS | Clinical Summary ---
Author Organization [facility] Address [address] [place] [address] Care Team Providers Care Food Preparation Kitchen Aide Name Role Phone Oxana Potts NP Unavailable [phone] Kye Shukla MD Unavailable [phone] Marly Beltran GUEST ASSOCIATE Primary Care Provider [phone] Allergies Active Allergy Reactions Criticality Noted Date [...] 1 tablet (5 mg total) by mouth bookkeepers supervisor before breakfast Active olmesartan (BENICAR) 20 mg tablet Take 1 tablet (20 mg total) by mouth bookkeepers supervisor before breakfast Active omeprazole (PriLOSEC) 40 mg capsule Take 1 capsule (40 mg total) by mouth bookkeepers supervisor before breakfast Active cetirizine (ZyrTEC) 10 mg chewable tablet Take 1 tablet (10 mg total) by mouth bookkeepers supervisor before breakfast Active amoxicillin (AMOXIL) 875 mg [...] 1 tablet (60 mg total) by mouth bookkeepers supervisor before breakfast Active HYDROcodone-jozef taminophen (NORCO) 5-325 [...] Signed by Leroy Gamez MD on 05/23/2023 Encounters Date Type Department Care Team Description 03/08/2024 12:25 PM PLAN NURSE Lab [address] [address] Prostate cancer (HCC) from Last 3 Months Surgical History Surgery Date Site/Laterality Comments KNEE ASPIRATION Right 2013 COLONOSCOPY 02/13/2021 - 02/12/2022 PROSTATE BIOPSY 08/2022 Medical History Medical History Date Comments Insomnia Hypertension CPAP (continuous positive airway pressure) depen dence Sleep apnea wears cpap Prostate cancer (HCC) Family History Medical History Relation Name Comments Hypertension Brother 1 Hyperlipidemia Brother 2 Hyperlipidemia Father Hypertension Father Prostate cancer Father No Known Problems Maternal Grandfather No Known Problems Maternal Grandmother Anemia Mother Celiac disease Mother Heart attack Mother No Known Problems Paternal Grandfather Hyperlipidemia Paternal Grandmother Hypertension Paternal Grandmother Thyroid disease Sister 1 Hypertension Sister 2 Anesthesia problems Neg Hx Relation Name Status Comments Brother 1 Alive Brother 2 Alive Father Alive Maternal Grandfather Maternal Grandmother Mother Alive Paternal Grandfather Paternal Grandmother Sister 1 Alive Sister 2 Alive Social History Tobacco Use Types Packs/Day Years [...] on file Legal Sex Male 4:27 AM PLAN NURSE Gender Identity Not on file Sexual Orientation Not on file Obstetrics History Last Filed Vital Signs Vital Sign Reading [...] 05/08/2023 1:45 PM CDT Plan of Treatment Health Maintenance Due Date Last Done Comments Colon Cancer Screening-Colonoscopy 1965 Depression Screening 1965 Hepatitis C Screening 1965 Pneumococcal vaccine <65 (1 of 2 - PCV) 11/13/1969 DTaP/Tdap/Td Vaccine (1 - Tdap) 11/13/1974 Hepatitis B Screening 11/13/1981 Regular Well Visit/Exam 18-64 11/13/1981 Lung Cancer Screening 11/13/2013 Zoster Vaccine (1 of 2) 11/13/2013 Covid-19 Vaccine (2023-2 5 season) 2023 11/13/2022, 02/19/2022, 08/29/2021, Additional history exists Influenza Vaccine (#1) 2023 , 03/14/2021, 01/12/2020, Additional history exists Prostate Cancer Screening-PSA 03/08/2026, 11/25/2023, 08/26/2023 Procedures Procedure Name Priority Date/Time Associated Diagnosis Comments PSA DIAGNOSTIC Routine 03/08/2024 12:34 PM PLAN NURSE Prostate cancer (HCC) TOTAL TESTOSTERONE Routine 03/08/2024 12 :34 PM PLAN NURSE Prostate cancer (HCC) from Last 3 Months Results * (ABNORMAL) Total testosterone (03/08/2024 12:34 PM PLAN NURSE) Testosterone 789(H) 193 - 740 ng/dL Comment:Testing performed by : [facility], [address] [place] [address], [place]., [address] Blood 03/08/2024 12:3 4 PM PLAN NURSE 03/08/2024 7:49 PM PLAN NURSE Oxana Potts NP LAB BLOOD ORDERABLES F inal Result [facility] [place]) 1 [facility] Department [place] [address] * PSA diagnostic (03/08/2024 12:34 PM PLAN NURSE) PSA-Total 0.50 <=5.40 ng/mL Comment: Interpretive Data [...] revised 21. Blood 03/08/2024 12:3 4 PM PLAN NURSE 03/08/2024 12:38 PM PLAN NURSE Oxana Potts NP LAB BLOOD ORDERABLES F inal Result [facility] ([place]) 1 [facility] Department [place] [address] from Last 3 Months Insurance [facility] [employer] GENERIC [facility] [employer] GENERIC Advance Directives For more information, please contact: [phone] * Full Code (Latest Code Status on File) Date Activated Date Inactivated Comments 05/22/2023 4:44 PM 05/23/2023 8:00 PM Care Teams Food Preparation Kitchen Aide Relationship Specialty Start Date End Date Marly Beltran NP [address] [place] [address] PCP - General Internal Medicine 03/22/24 Oxana Potts NP [address] [place] [address] Nurse Practitioner Nurse Practitioner 05/31/23 Kye Shukla MD [address] [place] [address] Radiation Oncologist Radiation Oncology 05/31/23
--- OUTSIDE RECORDS SUMMARY | 2024-03-29 08:25 | XMS_ITS | Encounter Summary ---
Author Organization [facility] Address [facility] [place] [address] Care Team Providers Care Laundry Washer Name Role Phone Helene Jacome MD Unavailable Encounter Details Date Type Department Care Team (Late st Contact Info) Description 04/29/2017 Abstract [facility] CONVERSION [address] [place] [address] , Generic Conversion, Social History Tobacco Use Types Packs/Day Years Used Date Smoking Tobacco: Never Assessed Sex and Gender Information Value Date Recorded Sex Assigned at Not on file Legal Sex Male 1:30 PM CDT Gender Identity Not on file Sexual Orientation Not on file documented as of this encounter Plan of Treatment Not on file documented as of this encounter Visit Diagnoses Not on filedocumented in this encounter Care Teams Laundry Washer Relationship Specialty Start Date End Date Helene Jacome MD [address] [place] [address] Change Roof Bolter CLINICAL CARDIAC ELECTROPHYSIOLOGY 06/23/16 documented as of this encounter
--- OUTSIDE RECORDS SUMMARY | 2024-03-29 08:25 | XMS_ITS | Clinical Summary ---
Author Organization [facility] Address [address] [place] [address] Care Team Providers Care Builder Beam Name Role Phone Aneesh Doty MD Primary Care Provider Source Comments [facility],non-owned Affiliates and Associated Physician Practices is amultiple site organization consisting of ambulatory clinics and hospital sitesin [place], [place], [place] and [place]. This disclosure is being madepursuant to the Care Everywhere program and may not contain all information available regarding this patient. Last updated 17.[facility] Immunizations Name Administration Dates Next Due iNFLUENZA VACCINE, RECOM-SHARMA, QUADR. (FLUBLOCK QUADRIVALENT; 18Y+) (RIV4) 12/10/2017 Social History Tobacco Use Types Packs/Day Years Used Date Smoking Tobacco: Never Assessed Sex and Gender Information Value Date Recorded Sex Assigned at Not on file Gender Identity Not on file Sexual Orientation Not on file Plan of Treatment Health Maintenance Due Date Last Done Comments COLOGUARD (AGES 45-75) - COL ON CA SCREENING 1963 COLON MONITORING 1963 COLONOSCOPY - COLON CA SCREENING 1963 CT COLONOGRAPHY - COLON CA SCREENING 1963 Colorectal Cancer Screening 1963 FIT - COLON CA SCREENING 1963 FLEX SIG - COLON CA SCREENING 1963 LIPID TESTING 1963 HIV SCREENING 11/13/1978 HEPATITIS C SCREENING 11/09/1981 DTAP/TDAP/TD VACCINES (1 - Tdap) 11/13/1982 PNEUMOCOCCAL VACCINE 50+ (1 of 1 - PCV) 11/13/2013 ZOSTER VACCINE (1 of 2) 11/13/2013 COVID-19 VACCINE (2023-2 5 season) 2023 INFLUENZA VACCINE (#1) 2023 12/10/2017 DEPRESSION SCREENING 02/14/2024 Respiratory Syncytial Virus (RSV) Vaccine Pt: or over 60 yrs (1 - 1-dose 75+ series) 11/13/2038 HEPATITIS B VACCINE Aged Out No longe r eligible based on patient's age to complete this topic HIB VACCINE Aged Out No longer eligi ble based on patient's age to complete this topic HPV VACCINE Aged Out No longer eligi ble based on patient's age to complete this topic MENINGOCOCCAL (Group B) VACCINE Aged Out No longer eligible based on patient's age to complete this topic MENINGOCOCCAL VACCINE Aged Out No kami marcia eligible based on patient's age to complete this topic PNEUMOCOCCAL VACCINE Aged Out No long er eligible based on patient's age to complete this topic Care Teams Builder Beam Relationship Specialty Start Date End Date Aneesh Doty MD [phone] [place] [id number] PCP - General 07/20/21
[2024-03-29 17:46] LABS: Hematocrit 40.9 % (42.0-52.0); Hemoglobin 13.6 g/dL (14.0-18.0); Mean Corpuscular HGB Conc 33.3 g/dl (32-36); Mean Corpuscular Hemoglobin 33.3 pg (26-34); Mean Corpuscular Volume 100.2 fl (80-100); Mean Platelet Volume 10.4 fl (7.4-10.4); Platelet Count Result 304 k/mm3 (150-375); Red Blood Count 4.08 M/mm3 (4.6-6.20); Red Cell Distribution Width 14.3 % (11.5-14.5)
[2024-03-29 17:49] LABS: Alanine Aminotransferase 22 U/L (6-50); Albumin Level 3.9 g/dL (3.5-5.1); Alkaline Phosphatase 97 U/L (38-126); Anion Gap 7 mmol/L (4-12); Aspartate Amino Transferase 34 U/L (17-59); Bilirubin,Total 0.4 mg/dL (0.2-1.3); Blood Urea Nitrogen 10 mg/dL (9-20); Calcium 9.4 mg/dL (8.4-10.2); Carbon Dioxide 30 mmol/L (22-30); Chloride 101 mmol/L (98-107); Cholesterol 193 mg/dL (0-200); Estimated Glomerular Filt Rate > 60; Glucose 100 mg/dL (65-110); HDL Direct 45 mg/dL; Potassium 4.2 mmol/L (3.4-5.0); Sodium 138 mmol/L (137-145); Triglycerides 129 mg/dL (<150)
[2024-03-29 18:00] LABS: LDL Cholesterol Direct 125 mg/dL
== END 2024-03-29 08:22 | disposition home or self-care (01) ==
LOC: ANHGOSHLAB 08:23
PROVIDERS: PCP Nurse Practitioner; Visit Provider Nurse Practitioner
DX: I48.0 Paroxysmal atrial fibrillation (principal); E78.2 Mixed hyperlipidemia; I10 Essential (primary) hypertension
CPT/HCPCS: 36415; 80053; 80061; 85027